=== PATIENT | male | born 1965 | race Caucasian/White ===

== ENCOUNTER → 2019-07-20 10:38 | Outpatient (CLI) | payer BC, SELFPAY ==
--- NOTE | 2019-07-20 15:00 | PM.TREADMILL ---
Cardiac Stress Test Report Referral & Results Date Patient Seen: 07/20/19 Requesting provider: Suellen Downey Indication: Chest discomfort Rest ECG: Unremarkable Procedure Note: Today following both written and verbal informed consent the patient was exercised according to a standard Harshil protocol patient went for a total of 6 minutes 34 seconds gone achieving a maximum heart rate of 153 maximum systolic blood pressure of 180. This is approximately 7.0 METS. Exercise was terminated at this point because of 3+ dyspnea and inability the patient to continue. Patient was also given Cardiolite through a previously started Hep-Lock IV by the diagnostic imaging staff approximately 1 minute prior to the cessation of exercise. There was widespread upsloping minimal ST segment depression in changes with exercise that remain during the recovery portion of the test. Patient was mildly hypoxic with an oxygen saturation of 91 perhaps even as low as 90% with exercise He was quickly tachycardic but not necessarily hypertensive Function aerobic impairment rated 25% on the sedentary scale Impression: Nonspecific ST segment changes not likely to be ischemic given the lack of specific distribution Limited exercise capacity Very Mild hypoxia Please see perfusion imaging report as well Please note: Actual ECG tracings can be found in the PACS system.
--- NOTE | 2019-07-21 10:53 | DI.NM.S_ITS ---
DATE OF SERVICE: 07/20/2019 PROCEDURE PERFORMED: Exercise treadmill [id number] myocardial perfusion imaging with gating to assess ejection fraction and regional wall motion, performed as a 1-day protocol study. ORDERING PROVIDER: CHRISTIANA Cardona INDICATIONS: The patient is a 53-year-old male with exertional dyspnea and chest discomfort. EXERCISE TREADMILL TESTING: The patient was able to exercise for 6 minutes 34 seconds on a standard Harshil protocol, suggesting moderate-severely impaired exercise capacity with an PHAN of +30%. He had a normal heart rate and blood pressure response to exercise, achieving a maximum heart rate of 153 bpm (92% of his predicted maximum). He had no chest discomfort and stopped because of dyspnea. He developed borderline hypoxemia with exercise with O2 saturation dropping to 91%. His resting ECG is normal and there are no significant ST segment shifts to suggest ischemia. There were no arrhythmias. FINDINGS: 1. Raw data: Image quality is fairly poor, in part due to the use of a single day protocol. There is subdiaphragmatic tracer activity adjacent at the inferior wall on the resting images which affects the interpretation. The lung/heart ratio is elevated at 0.49, which can be a sign of pulmonary congestion but is nonspecific. TID ratio is normal at 0.83. 2. Quantitative gated SPECT: Post-stress ejection fraction is estimated at 71% without any focal wall motion abnormality and specifically the inferior wall appears to have brisk contractility. The resting ejection fraction is estimated at 61%, with a resting end-diastolic volume that is mildly increased at 145 mL. 3. Myocardial perfusion imaging: Post-stress supine images are of marginal quality but show a mild perfusion defect in the inferior wall in a pattern that consistent with diaphragmatic attenuation, supported by its resolution on the prone images, which reveal a fairly normal perfusion pattern. The resting images are compromised by subdiaphragmatic tracer activity adjacent to the inferior wall but the inferior defect appears to be worse on the resting images compared to the stress images. There are no areas of improvement. CONCLUSIONS: 1. Probable normal myocardial perfusion study but with somewhat reduced sensitivity and specificity because of marginal image quality. 2. Subtle fixed distal inferior defect that resolves on prone imaging, most consistent with diaphragmatic attenuation. There is no compelling evidence for significant myocardial ischemia or previous myocardial infarction. 3. Normal left ventricular systolic function without focal wall motion abnormalities, although left ventricular volumes are mildly increased. 4. Fmwfpyyd-yzeflkre-uypsryu exercise capacity with exertional dyspnea without angina with documented borderline hypoxemia. There are no concerning ECG changes of ischemia. Johnson Pena III - RICH/june/ts doc#: [id number]/job#: [id number] dd: 07/20/2019 16:48:00 dt: 07/21/2019 10:36:00 DICTATING MD/COPIES TO: Valentín Swanson MD; JANNET Cardona COPIES MNE: SANDY TAN
== END ==
PROVIDERS: Visit Provider Physician Assistant Medical
DX: R07.89 Other chest pain (principal); R06.09 Other forms of dyspnea
CPT/HCPCS: 78452; 93016; 93017; 93018; A9502

== ENCOUNTER → 2019-10-16 07:07 | Outpatient (CLI) | payer BC, SELFPAY ==
--- NOTE | 2019-10-16 | DI.ECHO.S_ITS ---
[facility]---------+ [facility] +---------+ : : [address] : : : : [id number] : : : : Phone: [phone]+ Echocardiogram Report + + :Name: NIKHIL LUZ III FStudy Date: 10/16/2019 Height: 72 in : :[facility] Weight: 216 lb : : Gender: Male BSA: 2.2 m2 : :: 1965 Age: 54 yrs BP: 132/80 mmHg: :Reason For Study: SOB : :Ordering Physician: Greg : :Kristan Finn Performed By: Génesis Johnson : :Referring: GREG FINN : + + Interpretation Summary The left ventricle is normal in size. The ejection fraction is estimated to be 60-65%. The right ventricle is normal in size and function. There is mild aortic regurgitation. The IVC is of normal diameter and collapses greater than 50% with a sniff. This suggests a low right atrial pressure of 3 mm Hg. Procedure: A two-dimensional transthoracic echocardiogram with color flow and Doppler was performed. The study quality was technically adequate. There is no prior echocardiogram noted for this patient. The patient was in normal sinus rhythm during the exam. Left Ventricle: The left ventricle is normal in size. Left ventricular wall thickness is borderline increased. There is no thrombus. The ejection fraction is estimated to be 60-65%. Left ventricular wall motion is normal. MV E/A: 1.2 Med Peak E' Kb: 10.7 cm/sec E/E' med: 9.0. Right Ventricle: The right ventricle is normal in size and function. Atria: Both atria are normal in size. There is no Doppler evidence for an interatrial shunt. Mitral Valve: The mitral valve is normal in structure and function. There is trace mitral regurgitation. Aortic Valve: The aortic valve is trileaflet. The aortic valve opens well. There is no aortic valve stenosis. There is mild aortic regurgitation. Tricuspid Valve: The tricuspid valve is normal in structure and function. There is trace tricuspid regurgitation. Pulmonary artery pressures cannot be estimated because of the lack of a measurable TR jet velocity. Pulmonic Valve: The pulmonic valve is normal in structure and function. There is a trace or physiologic amount of pulmonic regurgitation. Great Vessels: The aortic root is normal size. The ascending aorta is at the upper limits of normal in size. The IVC is of normal diameter and collapses greater than 50% with a sniff. This suggests a low right atrial pressure of 3 mm Hg. Pericardium/ Pleura There is no pericardial effusion. There is no pleural effusion. MMode/2D Measurements & Calculations LVIDd: 5.2 cm LVOT diam: 2.4 cm LVIDs: 3.2 cm Ao root diam: 3.4 cm FS: 38.7 % asc Aorta Diam: 3.8 cm EPSS: 0.21 cm Ao Arch Diam (Prox Trans): 3.6 cm IVSd: 0.96 cm LVPWd: 1.1 cm LV mcintosh. diameter/BSA (cm/m^2): 2.3 LV sys. diameter/BSA (cm/m^2): 1.4 LA A2 area: 21.6 cm2 RA long axis: 4.9 cm LA A4 area: 20.2 cm2 RA area: 17.6 cm2 LA length (vol): 5.3 cm RA vol: 53.8 ml LA vol: 69.9 ml RA : 24.4 ml/m2 LA vol index: 31.7 ml/m2 IVC diam: 1.2 cm RVD1 (basal): 3.3 cm TAPSE: 2.8 cm Doppler Measurements & Calculations Ao V2 max: 143.6 cm/sec LVOT Max Kb: 132.8 cm/sec Ao V2 mean: 86.3 cm/sec LV V1 max P.1 mmHg Ao max P.2 mmHg LV V1 VTI: 21.9 cm Ao mean P.6 mmHg TIARA(I,D): 3.7 cm2 Ao V2 VTI: 27.3 cm TIARA(V,D): 4.2 cm2 sev ratio: 0.80 TIARA indexed to BSA (cm^2/m^2): 1.7 AI P1/2t: 889.7 msec AI dec slope: 117.7 cm/sec2 MV E max kb: 96.7 cm/sec PA V2 max: 120.3 cm/sec MV A max kb: 81.0 cm/sec PA V2 mean: 80.7 cm/sec MV E/A: 1.2 PA mean P.0 mmHg Med Peak E' Kb: 10.7 cm/sec PA pr(Accel): 24.0 mmHg E/E' med: 9.0 Lat Peak E' Kb: 10.7 cm/sec E/E' lat: 9.0 E/e' average: 9.0 MV dec time: 0.23 sec MV P1/2t: 67.5 msec MV P1/2t max kb: 97.6 cm/sec SV(LVOT): 100.3 ml MVA(2t): 3.3 cm2 Reading Physician:12:34 PM
== END ==
PROVIDERS: PCP Family Medicine; Referring Provider Internal Medicine Cardiovascular Disease; Visit Provider Internal Medicine Cardiovascular Disease
DX: I35.1 Nonrheumatic aortic (valve) insufficiency (principal); R06.02 Shortness of breath; I25.10 Atherosclerotic heart disease of native coronary artery without angina pectoris; I25.84 Coronary atherosclerosis due to calcified coronary lesion
CPT/HCPCS: 93306